=== PATIENT | male | born 1980 | race Caucasian/White ===

== ENCOUNTER 2017-11-13 19:34 | Emergency (ER) | payer MEDICARE | END 2017-11-13 22:22 | disposition home or self-care (01) | LOC: D.ER 19:34 | DX: T63.461A Toxic effect of venom of wasps, accidental (unintentional), initial encounter (principal); Y92.019 Unspecified place in single-family (private) house as the place of occurrence of the external cause; I10 Essential (primary) hypertension; F17.200 Nicotine dependence, unspecified, uncomplicated ==